=== PATIENT | female | born 2000 | race Hispanic/Latino ===

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

== ENCOUNTER 2018-12-18 14:05 | Outpatient (CLI) | payer OTHER ==
--- NOTE | 2018-12-18 15:11 | ULT ---
EXAM: OB ultrasound COMPARISON: None HISTORY: female. Evaluate size, dates, and anatomy. TECHNIQUE: Multiplanar grayscale and color Doppler transabdominal sonographic images are obtained. FINDINGS: There is a single intrauterine gestation in breech presentation. Cardiac Doppler demonstrat es heart tones with a heart rate of 137 beats per minute. The placenta is located posterior and fundal. Lower uterine segment is not well evaluated on this exam. However, the ultrasou nd technologist does report no evidence of placenta previa. The amniotic fluid index is diminished at 6.6 cm. The cervical length based on transabdominal imaging measures 4.5 centimeters. biometry measurements: BPD 9.39 cm -- 38 weeks 2 days HC 35.53 cm -- 41 weeks 4 days AC 34.54 cm -- 38 weeks 3 days FL 7.64 cm -- 39 weeks The estimated gestational age by ultrasound is 39 weeks 2 days with an ESPERANZA on12/23/2018. Gestational a ge by the last menstrual period is 39 weeks 6 days. The estimated weight by ultrasound is 3632 g (8 pounds). This represents 53 percentile for feta l weight. A 4 chambered heart is visualized. The cerebellum is not visualized due to gestational age of the fet us and head ossification resulting in shadowing. The visualized portions of the spine, kidneys, urinary bladder, and cord insertion demonstrate a normal sonographic appearance. Three-vessel cord is visualized. There is limited evaluation due to advanced gestational age, no defi nite anomalies are visualized. IMPRESSION: 1. Single intrauterine gestation in breech presentation with heart tones documented. Estimated gestational age by ultrasound is 39 weeks 2 days with ESPERANZA on 12/23/2018. 2. Estimated weight is 3632 g (8 pounds). 3. Amniotic fluid index is 6.6 centimeters which is diminished. 4. Limited evaluation of the lower uterine segment.
== END 2018-12-18 14:06 | disposition home or self-care (01) ==
LOC: SCSULT 14:05
PROVIDERS: ATTEND Student in an Organized Health Care Education/Training Program
DX: Z34.80 Encounter for supervision of other normal pregnancy, unspecified trimester (principal); Z3A.39 39 weeks gestation of pregnancy
CPT/HCPCS: 76805

== ENCOUNTER 2018-12-18 16:30 | Inpatient (IN) | payer OTHER ==
[~2018-12-18 16:30] MED LIST: Ondansetron PF 4 MG/2 ML Vial ONE
[2018-12-18 17:14] VITALS: BMI 35.9
[2018-12-18] MEDS ORDERED: hydrALAZINE 20 MG/ML VIAL SLOW IVP PRN ×2 (18:27→19:51)
--- NOTE | 2018-12-18 18:47 | PDOC.FPROB ---
FMR OB H&P: HPI - History of Present Illness Chief Complaint: Elevated blood pressure Indentification: 18yo F History of Present Illness: @ 39.6 wk by LMP and 10.6wk sono presents to L&D for evaluation after elevated BP at [facility]. Pt has had poor care with only 3 previous visits during this . Pt stated that she was unaware that she had medicaid coverage during this time. Today at her visit pt had BP of 144/82 and 122/82 in clinic. Sent for US which showed OBIE of 6.6, breech presentation, EFW of 3632, and hadlock of 53%. Dr. Florez at [facility] then called pt and sent her here for further evaluation of her elevated blood pressures. Pt denies any vaginal bleeding, discharge, loss of fluid. Notes intermittent contractions that are mildly painful and spaced far enough apart that she has been unable to time them. Denies any vision changes, increased swelling, headache, or neuro sx. Pt denies knowledge of any complications or infections with this . Primary Care Physician: Dr. Carol Florez - [facility] FMR OB H&P: Current - Care : 2 Para: 1 Gestational age: 39.6 Due date: 12/19/2018 Dating Criteria: LMP/10.6wk sono - OB Labs Blood type: O RH: negative Antibody Screen: unknown HIV: unknown RPR: unknown HepBsAg: unknown Quad screen: unknown Urine drug screen: not done Gonorrhea: unknown Chlamydia: unknown GBS: unknown - First Trimester Ultrasound First trimester: Initial US: 10.6wk US consistent w/ LMP. 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 No pap done w/ this . - Surgical History Sx History: None - Social History Social History: Denies any tobacco, alcohol, or drug use - Family History Family History: Denies any significant FHx FMR OB H&P: Medications - Current Home Medications: Medication Instructions Recorded Confirmed Type No Known 12/18/18 12/18/18 History Allergies/Adverse Reactions: Allergies Allergy/AdvReac Type Severity Reaction Status Date / Time No Known Allergies Allergy Verified 10/30/17 23:41 FMR OB H&P: ROS - Review of Systems General: denies: fever/chills, weight/appetite/sleep changes Eyes: denies: vision changes, double vision ENT: denies: nasal congestion, rhinorrhea Cardiovascular: denies: chest pain, edema Respiratory: denies: cough, shortness of breath Gastrointestinal: denies: abdominal pain, cramping, nausea, vomiting, diarrhea Genitourinary (Female): reports: contractions. denies: vaginal discharge, vaginal pain, vaginal bleeding Musculoskeletal: denies: tenderness, swelling Neurologic: denies: seizures, weakness, headache Integumentary: denies: itching, rash FMR OB H&P: Vital Signs - Maternal Vital signs: BP: 126/78 HR: 83 - Heart Tones Baseline: 170 Variability: moderate Acceleration: absent Deceleration: variable Category: category 2 Rayne contractions every: No definitive toco contractions visualized FMR OB H&P: Physical Exam - Physical Exam General: NAD, awake, alert and oriented HEENT: normocephalic and atraumatic, EOMI, MMM, grossly normal vision, grossly normal hearing Neck: supple, FROM Heart: RRR, normal S1/S2, no murmurs/rubs/gallops General: CTAB, no respiratory distress, good air movement Abdomen: soft, gravid, bowel sound present Musculoskeletal: normal gait and station, pulses present, FROM in all four extremities Neurological: cranial nerves II through XII intact, no focal deficit Skin: no rash, capillary refill <2 seconds Lymphatic: no unusual bruising or bleeding, no purpura FMR OB H&P: A/P - Problem List (1) History of inadequate care Current Visit: Yes Status: Acute Code(s): O09.30 - SUPRVSN OF PREG W INSUFFICIENT ANTENAT CARE, UNSP TRIMESTER Assessment and Plan: Order routine labs - HIV, RPR, Type Screen. UDS (2) Breech presentation of fetus Current Visit: Yes Status: Acute Code(s): O32.1XX0 - MATERNAL CARE FOR BREECH PRESENTATION, UNSP Assessment and Plan: Strip has progressed to Cat 2 with tachycardia and variable decels. Will plan for urgent . (3) Elevated blood pressure reading Current Visit: Yes Status: Acute Code(s): R03.0 - ELEVATED BLOOD-PRESSURE READING, W/O DIAGNOSIS OF HTN Assessment and Plan: Normal pressures since admission. Pre-e workup not deemed necessary at this time. (4) Third trimester Current Visit: Yes Status: Acute Code(s): Z34.93 - ENCNTR FOR SUPRVSN OF NORMAL PREG, UNSP, THIRD TRIMESTER Discussion: Date/Time: 12/18/18 611 This H&P was discussed with Dr. Roberts and Dr. Connor who agree with the above documentation and plan. Signature: Dallas Maldonado D.O. PGY1 Addendum - Attending - Attending Attestation Date/Time: 12/19/18 1287 I personally evaluated the patient and discussed the management with Dr. Maldonado at time of admission. I agree with the History, Examination, Assessment and Plan documented above with any addition or exceptions noted below. Please note that a second elevated BP was recorded and a preE workup was completed and the diagnosis of preeclampsia confirmed.
--- NOTE | 2018-12-18 19:05 | ULT ---
LIMITED OBSTETRICAL ULTRASOUND FOR BIOPHYSICAL PROFILE INDICATION: Low OBIE with limited care TECHNIQUE: Grayscale, M-mode Doppler, color Doppler and spectral Doppler images were obtained. Biophy sical profile was submitted by the hydro plant technician. Imaging is focused on the clinical indication. COMPARISON: Prior exam dated December 18, 2018 at 2:21 PM GESTATION: Number of gestations: Single. Presentation: Breech. heart rate: 152 bpm. Placental location: Right and fundal Previa: No evidence for previa. Cervical length: Not seen OBIE: 8.5 cm. Biophysical profile: tone: 2 out of 2. breathin out of 2 movements: 2 out of 2 Amniotic fluid level: 2 out of 2 IMPRESSION: 1. Biophysical profile of 8 out of 8. 2. OBIE of 8.5 cm is slightly above the 5th percentile for gestational age.
[2018-12-18] MEDS ORDERED: Promethazine HCl 25 MG/ML VIAL IM PRN ×2 (19:51→22:13)
[2018-12-18] MEDS ORDERED: Ondansetron PF 4 MG/2 ML Vial IVP PRN ×2 (19:51→22:13)
[2018-12-18] MEDS ORDERED: CEFAZOLIN 2 GM in Premix Bag 1 BAG IVPB SCH (20:00)
[2018-12-18] MEDS ORDERED: Bicitra 30 ML UDCUP PO SCH (20:00)
[2018-12-18] MEDS ORDERED: Lactated Ringer's 1,000 ML IV SCH (20:00)
[2018-12-18 20:20] LABS: Hemoglobin 9.9 g/dL (12.0-16.0); Mean Corpuscular HGB CONC 32.9 g/dL (32.0-36.0); Mean Corpuscular Hemoglobin 22.2 pg (25.0-35.0); Mean Corpuscular Volume 67.5 fL (78.0-98.0); Mean Platelet Volume 11.3 fL (7.4-10.4); Platelet Count 222 thou/uL (130-400); RBC Distribution Width 15.9 % (11.5-14.5); Red Blood Cell (RBC) Count 4.45 mill/uL (4.00-5.20); White Blood Cell (WBC) Count 10.2 thou/uL (4.8-10.8)
--- NOTE | 2018-12-18 20:32 | PDOC.EVN ---
Event Note - Event Note Event Note: @ 39w6d by nunu lozano who presented at [facility] and had one mild range BP. She was subsequently sent for an anatomy scan and was found to have a breech fetus. She has had an additional mild range pressure since being monitored. PMH/PSH - negative Meds: none NKDA SH: denies EDGARD FH: noncontributory ROS negative for preE symptoms FHTs cat 2 with tachycardia(BL 165), mod variability, and intermittent variable- appearing decelerations Rare ctx SVE deferred Labs pending A/P: @ 39w6d with ghtn vs chtn insufficient PNC (one visit ~10w, then one today) breech presentation anemia cat 2 FHTs 1. Pre E w/u and 3t labs 2. Will proceed with PLTCS in light of above. I discussed r/b/a/i of version, which is very unfavorable in setting of low fluid, >39w fetus, and cat 2 FHTs and she elects for CD. I discussed risks of pain, bleeding, infection, damage to bowel/bladder/other internal organs, need for transfusion, prolonged hospitalization, repeat operation and she voices understanding and desires to proceed. 3. Anesthesia notified. Kemar Roberts MD
[2018-12-18 20:38] LABS: Hypochromia SLIGHT = 6-15 cells (100X) (0-5/hpf); Lymphocytes 16 % (28-48); MDiff Complete? YES; Monocytes 1 % (0-4); Neutrophil 83 % (31-61); Platelet Morphology Comment Appears Adequate
[2018-12-18] MEDS ORDERED: PHENYLEPHRINE-NS 100 MCG/ML 10 ML SYRINGE ONE (20:39)
[2018-12-18] MEDS ORDERED: Oxytocin 10 UNITS/ML VIAL ONE ×2 (20:39→22:02)
[2018-12-18] MEDS ORDERED: MORPHINE 5 MG/10 ML PF VIAL ONE (20:39)
[2018-12-18 20:41] LABS: ALT (SGPT) Less than 7 U/L (8-55); AST (SGOT) 11 U/L (5-34); Albumin 3.6 g/dL (3.5-5.0); Alkaline Phosphatase 230 U/L (40-100); Anion Gap 15 mmol/L (10-20); BUN (Urea Nitrogen) 5 mg/dL (7.0-18.7); Bilirubin, Total 0.4 mg/dL (0.2-1.2); Calc. Creatinine Clearance 189 mL/min (70-130); Calcium 8.7 mg/dL (7.8-10.44); Carbon Dioxide 21 mmol/L (22-29); Chloride 105 mmol/L (98-107); Estimated GFR-MDRD Greater than 90; Globulin 3.6 g/dL (2.4-3.5); Glucose 72 mg/dL (70-105); Potassium 3.7 mmol/L (3.5-5.1); Protein, Total 7.2 g/dL (6.0-8.3); Sodium 137 mmol/L (136-145)
[2018-12-18] MEDS ORDERED: Ondansetron PF 4 MG/2 ML Vial ONE (20:47)
[2018-12-18 21:00] LABS: Syphilis Antibody Nonreactive (Nonreactive); Syphilis Antibody Index 0.04 S/CO (<1.00 Non-Reactive)
[2018-12-18] MEDS ORDERED: ePHEDrine/0.9% NaCl/PF SYRINGE 50 mg/10 ml ONE (21:02)
[2018-12-18] MEDS ORDERED: Methylergonovine 0.2 MG/ML VIAL ONE (21:35)
[2018-12-18] MEDS ORDERED: Fentanyl 100 MCG/2 ML VIAL ONE (21:40)
[2018-12-18 21:57] LABS: Actual Bicarbonate (HCO3a) 22.7 mEq/L (22-28)
[2018-12-18 21:59] LABS: Actual Bicarbonate (HCO3v) 22 mEq/L (22-28)
[2018-12-18 22:13] LABS: HBSAg Index 0.19 S/CO (0-0.99); HIV (1/2) Antibody/Antigen Non-Reactive (NonReactive); HIV 1/2 INDEX 0.05 S/CO (<1.00); Hep B Surf Ag Non-Reactive S/CO (NonReactive)
[2018-12-18] MEDS ORDERED: Naloxone HCl 0.4 mg/ml Vial IVP PRN ×2 (22:13)
[2018-12-18] MEDS ORDERED: HYDROmorphone 2 MG/ML VIAL SLOW IVP PRN (22:13)
[2018-12-18] MEDS ORDERED: Meperidine HCl/PF 25 MG/ML VIAL SLOW IVP PRN (22:13)
[2018-12-18] MEDS ORDERED: L&D-Morphine 4 MG/ML VIAL SLOW IVP PRN (22:13)
[2018-12-18] MEDS ORDERED: diphenhydrAMINE 50 MG/ML VIAL IVP PRN (22:13)
[2018-12-18] MEDS ORDERED: Ondansetron HCl/PF 4 MG/2 ML Vial IVP PRN (22:13)
[2018-12-18] MEDS ORDERED: Naloxone HCl 0.4 mg/ml Vial IV PRN (22:13)
[2018-12-18] MEDS ORDERED: Promethazine HCl 25 MG SUPP PR PRN (22:13)
[2018-12-18] MEDS ORDERED: Communication Order-Pharmacy FS SCH (22:15)
[2018-12-18] MEDS ORDERED: Ketorolac Tromethamine 30 MG/ML VIAL IVP SCH (22:15)
[2018-12-19 00:05] LABS: Creatinine, Urine 138.7 mg/dL (47-110)
[2018-12-19] MEDS ORDERED: Lanolin Ointment 7 GM TUBE TOP PRN (00:52)
[2018-12-19] MEDS ORDERED: hydrALAZINE 20 MG/ML VIAL SLOW IVP PRN (00:52)
[2018-12-19] MEDS ORDERED: HYDROcodone/Acetaminophen 5/325 mg Tablet PO PRN (00:52)
[2018-12-19] MEDS ORDERED: NS / Oxytocin 40 units/1000ml 1,000 ML IV SCH (00:52)
[2018-12-19] MEDS ORDERED: diphenhydrAMINE 25 MG CAP PO PRN (00:52)
[2018-12-19] MEDS ORDERED: Sodium Chloride 0.9% 10 ML ONE ×2 (01:27→06:35)
[2018-12-19] MEDS: Ketorolac Tromethamine 30 MG/ML VIAL IVP PRN ×3 (01:29→13:51)
[2018-12-19 06:16] LABS: Hemoglobin 8.4 g/dL (12.0-16.0); Mean Corpuscular HGB CONC 32.9 g/dL (32.0-36.0); Mean Corpuscular Hemoglobin 22.4 pg (25.0-35.0); Platelet Count 169 thou/uL (130-400); RBC Distribution Width 15.7 % (11.5-14.5); Red Blood Cell (RBC) Count 3.78 mill/uL (4.00-5.20); White Blood Cell (WBC) Count 11.1 thou/uL (4.8-10.8)
[2018-12-19] MEDS ORDERED: Adacel (T-DAP) 0.5 ML SYRINGE IM ONE (09:00)
[2018-12-19] MEDS: Ferrous Sulfate 325 MG TAB PO SCH ×2 (10:19→17:00)
[2018-12-19] MEDS: Docusate Calcium (SURFAK) 240 MG CAP PO SCH ×2 (10:19→21:13)
[2018-12-19] MEDS: HYDROcodone/Acetaminophen 5/325 mg Tablet PO PRN ×2 (10:20→13:50)
[2018-12-19] MEDS: Prenatal Vitamin 1 TAB PO SCH (10:24)
--- NOTE | 2018-12-19 12:37 | PDOC.PP ---
Post Progress Note Post Day #: 1 Subjective: Patient doing well. No significant overnight events. Patient states pain well controlled with current medications. Lochia is a little heavier than a period. Denies chest pain, shortness of breath, calf pain. PO intake tolerated: no Flatus: yes Ambulation: no Vital Signs (12 hours) Temp Pulse Resp BP Pulse Ox 12/19/18 11:23 98.4 F 89 20 104/56 L 12/19/18 08:03 98.3 F 70 20 114/62 98 12/19/18 07:47 70 114/62 12/19/18 02:20 98.5 F 89 18 118/65 12/19/18 01:05 98.1 F 77 18 131/80 100 Weight Weight 92.079 kg - Physical Examination General: NAD Cardiovascular: RRR Respiratory: non-labored breathing Abdominal: + bowel sounds, lochia (a little more than a period), no distention, appropriately TTP Fundus firm & at: 1 cm above umbilicus Extremities: negative homans (B) Skin: CS incision dry & intact, no rash Neurological: no gross focal deficits Psychiatric: A&Ox3, normal affect Result Diagrams: 12/19/18 05:57 12/18/18 20:08 Additional Labs: Post Labs Blood Type O POSITIVE 12/18/18 20:08 Hep Bs Antigen Non-Reactive S/CO (NonReactive) 12/18/18 20:08 (1) Term delivered Code(s): O80 - ENCOUNTER FOR FULL-TERM UNCOMPLICATED DELIVERY Status: Acute (2) Pre-eclampsia Code(s): O14.90 - UNSPECIFIED PRE-ECLAMPSIA, UNSPECIFIED TRIMESTER Status: Acute (3) Breech presentation of fetus Code(s): O32.1XX0 - MATERNAL CARE FOR BREECH PRESENTATION, UNSP Status: Acute (4) History of inadequate care Code(s): O09.30 - SUPRVSN OF PREG W INSUFFICIENT ANTENAT CARE, UNSP TRIMESTER Status: Acute (5) S/P primary low transverse Code(s): Z98.891 - HISTORY OF UTERINE SCAR FROM PREVIOUS SURGERY Status: Acute - Assessment/Plan 18 year old --> P2002 at 39.6 wks by LMP/10.6 wk sono TIUP, delivered - POD #1 s/p pLTCS - QBL 1060 mL, required methergine x1 (BP's not elevated at time of administration) - H/H 9.9/30 --> 8.4/25.7 - cEBL 884 mL - GBS unknown, pLTCS so no ppx needed - Routine post-op care - Encourage ambulation - D/C bear Pre-E - One elevated BP in clinic yesterday, so patient sent to L&D for triage. On arrival BP in 150's. - CMP and CBC WNL - Urine protein/creatinine 1.8 - BP's have been <140/90 - Continue to monitor BP Incomplete care - FDS and MDS pending for infant - No UDS obtained on admission s/p pLTCS - Breech presentation for advanced gestational age and low OBIE not safe for version - Continue routine PP care Breech presentation - s/p pLTCS - will need bilateral hip ultrasound at 6 weeks Dispo: Anticipate d/c within next 24-48 hours. Addendum - Attending - Attending Attestation Date/Time: 12/19/18 2082 I personally evaluated the patient and discussed the management with Dr. Ovalles. I agree with the History, Examination, Assessment and Plan documented above with any addition or exceptions noted below.
[2018-12-19] MEDS: Simethicone Chewable 80 MG TAB PO PRN (21:13)
[2018-12-19] MEDS: Ibuprofen 800 MG TAB PO SCH (21:13)
[2018-12-20] MEDS: Simethicone Chewable 80 MG TAB PO PRN (04:33)
[2018-12-20] MEDS: Ibuprofen 800 MG TAB PO SCH ×3 (05:55→21:00)
[2018-12-20] MEDS: Docusate Calcium (SURFAK) 240 MG CAP PO SCH ×2 (09:00→21:00)
[2018-12-20] MEDS: Ferrous Sulfate 325 MG TAB PO SCH ×2 (09:00→17:44)
[2018-12-20] MEDS: Prenatal Vitamin 1 TAB PO SCH (09:01)
--- NOTE | 2018-12-20 14:07 | PDOC.PP ---
Post Progress Note Post Day #: 2 Subjective: Patient doing well. No significant overnight events. Patient states she is passing gas, tolerating PO, and ambulating frequently without any difficulties. She is ready to go home. She denies chest pain, shortness of breath, N/V/D, or abdominal pain. PO intake tolerated: yes Flatus: yes Ambulation: yes Vital Signs (12 hours) Temp Pulse Resp BP Pulse Ox 12/20/18 08:00 99.0 F 85 20 115/66 98 12/20/18 04:26 98.7 F 76 18 110/66 Weight Weight 92.079 kg - Physical Examination General: NAD Cardiovascular: RRR Deviation from normal: 2/6 systolic murmur Respiratory: clear to auscultation bilaterally, non-labored breathing Abdominal: + bowel sounds, lochia (less than period), no distention, appropriately TTP Fundus firm & at: at umbilicus Extremities: negative homans (B) Skin: CS incision dry & intact, no rash Neurological: no gross focal deficits Psychiatric: A&Ox3, normal affect Result Diagrams: 12/19/18 05:57 12/18/18 20:08 Additional Labs: Post Labs Blood Type O POSITIVE 12/18/18 20:08 Hep Bs Antigen Non-Reactive S/CO (NonReactive) 12/18/18 20:08 Rubella IgG Antibody 3.32 index (Immune >0.99) 12/18/18 20:08 (1) Term delivered Code(s): O80 - ENCOUNTER FOR FULL-TERM UNCOMPLICATED DELIVERY Status: Acute (2) Pre-eclampsia Code(s): O14.90 - UNSPECIFIED PRE-ECLAMPSIA, UNSPECIFIED TRIMESTER Status: Acute (3) Breech presentation of fetus Code(s): O32.1XX0 - MATERNAL CARE FOR BREECH PRESENTATION, UNSP Status: Acute (4) History of inadequate care Code(s): O09.30 - SUPRVSN OF PREG W INSUFFICIENT ANTENAT CARE, UNSP TRIMESTER Status: Acute (5) S/P primary low transverse Code(s): Z98.891 - HISTORY OF UTERINE SCAR FROM PREVIOUS SURGERY Status: Acute - Assessment/Plan 18 year old --> P2002 at 39.6 wks by LMP/10.6 wk sono TIUP, delivered - POD #2 s/p pLTCS - QBL 1060 mL, required methergine x1 (BP's not elevated at time of administration) - H/H 9.9/30 --> 8.4/25.7 - cEBL 884 mL - GBS unknown, pLTCS so no ppx needed; called [facility] for results, but will not be available until Saturday. - Rubella immune, Rh + - Routine post-op care Pre-E - One elevated BP in clinic on day of admission, so patient sent to L&D for triage. On arrival BP in 150's. - CMP and CBC WNL - Urine protein/creatinine 1.8; collected after epidural - BP's have been <140/90 - Continue to monitor BP PP - Patient will need follow up at PNC in 1 week Incomplete care - MDS pending for infant - No UDS obtained on admission - FDS positive for methamphetamines; called lab regarding potential false positives which include phenylephedrine which may have been given during C/S. Will review records. FDS sent for confirmatory testing. - Reason for no PNC was d/t problems/concerns with insurance s/p pLTCS - Breech presentation for advanced gestational age and low OBIE not safe for version - Continue routine PP care - will need bilateral hip ultrasound 6 weeks from Breech presentation - s/p pLTCS - will need bilateral hip ultrasound at 6 weeks Dispo: D/C home at 20:00 tonight. Addendum - Attending - Attending Attestation Date/Time: 12/20/18 8656 I personally evaluated the patient and discussed the management with Dr. Ovalles I agree with the History, Examination, Assessment and Plan documented above with any addition or exceptions noted below. 18 yo now female s/p uncomplicated PLTCS for breech presentation on 12/18/18 at 2130 HD# 2 POD#2 Patient reports pain is controlled. No complications. No acute events overnight. Formula feeding. Lochia mild. +Flatus. VS reviewed. Labs reviewed. NAD RRR, II/ systolic flow murmur CTAB, no w/c Fundus firm below umbilicus, nontender Incision healing well. No e/d/p 1. s/p PLTCS for breech presentation: Unable to perform ECV. Uncomplicated. Meeting milestones. Ok to d/c later today if still doing well. Needs follow up wound check in 1 wk. 2. preeclampsia without severe features: Mild range BP and proteinuria. Remains asymptomatic. No need for mag ppx. BP WNL in pp period. ER precautions discussed. Will need BP check in 1 wk. 3. Incomplete PNC: Patient was seen for IOB visit, dating sono, and 39 wk visit on day of admission only. CM following. Has support. Denies drug use. No screening performed on mother due to uncollected urine. Likely false positive screen on infant due to medications received during spinal and BP assist during surgery. Confirmation testing pending. 4. Iron def anemia: Continue supplemental iron. 5. mild PPH?: QBL 1060 but calBL was only 887 mL based on Hct. Patient completely asymptomatic. 6. GBS pending. 7. Contraception: Patient unsure. Follow up with PCP. Ok to d/c later today if remains well. Jeff
[2018-12-21] MEDS: Ibuprofen 800 MG TAB PO SCH (05:31)
[2018-12-21 08:28] VITALS: BP 125/74; TEMP 98.4
[2018-12-21] MEDS: Docusate Calcium (SURFAK) 240 MG CAP PO SCH (08:50)
[2018-12-21] MEDS: Prenatal Vitamin 1 TAB PO SCH (08:50)
[2018-12-21] MEDS: Ferrous Sulfate 325 MG TAB PO SCH (08:50)
--- NOTE | 2018-12-21 09:54 | PDOC.PP ---
Post Progress Note Post Day #: 3 Subjective: Patient doing well. No significant overnight events. Patient opted to stay last night. Pain is well controlled. Meeting all PP milestones. No concerns. PO intake tolerated: yes Flatus: yes Ambulation: yes Vital Signs (12 hours) Temp Pulse Resp BP Pulse Ox 12/21/18 08:15 98.4 F 74 18 125/74 100 12/21/18 04:00 97.7 F 69 18 119/75 98 12/21/18 00:00 98.4 F 76 18 114/61 99 Weight Weight 92.079 kg - Physical Examination General: NAD Cardiovascular: RRR Respiratory: clear to auscultation bilaterally, non-labored breathing Abdominal: + bowel sounds, lochia (minimal), no distention, appropriately TTP Fundus firm & at: below umbilicus Extremities: negative homans (B) Skin: CS incision dry & intact, no rash Neurological: no gross focal deficits Psychiatric: A&Ox3, normal affect Result Diagrams: 12/19/18 05:57 12/18/18 20:08 Additional Labs: Post Labs Blood Type O POSITIVE 12/18/18 20:08 Hep Bs Antigen Non-Reactive S/CO (NonReactive) 12/18/18 20:08 Rubella IgG Antibody 3.32 index (Immune >0.99) 12/18/18 20:08 (1) Term delivered Code(s): O80 - ENCOUNTER FOR FULL-TERM UNCOMPLICATED DELIVERY Status: Acute (2) Pre-eclampsia Code(s): O14.90 - UNSPECIFIED PRE-ECLAMPSIA, UNSPECIFIED TRIMESTER Status: Acute (3) Breech presentation of fetus Code(s): O32.1XX0 - MATERNAL CARE FOR BREECH PRESENTATION, UNSP Status: Acute (4) History of inadequate care Code(s): O09.30 - SUPRVSN OF PREG W INSUFFICIENT ANTENAT CARE, UNSP TRIMESTER Status: Acute (5) S/P primary low transverse Code(s): Z98.891 - HISTORY OF UTERINE SCAR FROM PREVIOUS SURGERY Status: Acute - Assessment/Plan 18 year old --> P2002 at 39.6 wks by LMP/10.6 wk sono TIUP, delivered - POD #3 s/p pLTCS - QBL 1060 mL, required methergine x1 (BP's not elevated at time of administration) - H/H 9.9/30 --> 8.4/25.7 - cEBL 884 mL - GBS unknown, pLTCS so no ppx needed; called [facility] for results, but will not be available until Saturday. - Rubella immune, Rh + - Routine post-op care Pre-E - One elevated BP in clinic on day of admission, so patient sent to L&D for triage. On arrival BP in 150's. - CMP and CBC WNL - Urine protein/creatinine 1.8; collected after epidural - BP's have been <140/90 - Continue to monitor BP PP - Patient will need follow up at PNC in 1 week Incomplete care - MDS pending for infant - No UDS obtained on admission - FDS positive for methamphetamines; called lab regarding potential false positives which include phenylephedrine which may have been given during C/S. Will review records. FDS sent for confirmatory testing. - Reason for no PNC was d/t problems/concerns with insurance s/p pLTCS - Breech presentation for advanced gestational age and low OBIE not safe for version - Continue routine PP care - will need bilateral hip ultrasound 6 weeks from Breech presentation - s/p pLTCS - Infant will need bilateral hip ultrasound at 6 weeks Dispo: D/C home today. Addendum - Attending - Attending Attestation Date/Time: 12/21/18 1058 I personally evaluated the patient and discussed the management with Dr. Ovalles I agree with the History, Examination, Assessment and Plan documented above with any addition or exceptions noted below. 18 yo now female s/p uncomplicated PLTCS for breech presentation on 12/18/18 at 2130 HD# 3 POD#3 Doing well. Stayed overnight due to help with pain control. No longer having pain this AM. Ambulating well. +Flatus. VS reviewed. NAD RRR, I/ systolic flow murmur CTAB, no w/c Fundus firm below umbilicus, nontender Incision healing well. No e/d/p 1. s/p PLTCS for breech presentation: Unable to perform ECV. Uncomplicated. Meeting milestones. Ok to d/c today. Needs follow up wound check in 1 wk. 2. preeclampsia without severe features: Mild range BP and proteinuria. Remains asymptomatic. No need for mag ppx. BP WNL in pp period. ER precautions discussed. Will need BP check in 1 wk. 3. Incomplete PNC: Follow up closely outpatient to make sure patient has good support. 4. Iron def anemia: Continue supplemental iron. 5. mild PPH?: QBL 1060 but calBL was only 887 mL based on Hct. Patient completely asymptomatic. 6. GBS pending. Results to be available on Saturday. 7. Contraception: Patient unsure. Follow up with PCP. Ok to d/c to home. Follow up with PNC later this week for BP and wound check. Jeff
--- NOTE | 2018-12-22 03:56 | OP ---
DATE OF PROCEDURE: 12/18/2018 RESIDENT SURGEON: Marianela Ovalles DO PROCEDURE PERFORMED: Primary low-transverse section. PREOPERATIVE DIAGNOSES: 1. Term intrauterine . 2. Breech presentation. 3. Newly diagnosed preeclampsia. 4. Incomplete care. POSTOPERATIVE DIAGNOSES: 1. Term intrauterine , delivered. 2. Breech presentation. ANESTHESIA: Spinal. INDICATIONS: This is a 18-year-old G2, P1-0-0-1 at 39 and 6 weeks gestation, who initially presented to Labor and Delivery with elevated blood pressures from the clinic. The patient also had an ultrasound at an outside hospital, which showed breech presentation and low normal OBIE. After discussion with the patient due to elevated blood pressures and breech presentation, a decision was made to proceed with a primary low-transverse section. DESCRIPTION OF PROCEDURE: After risks, benefits, and alternatives were explained to the patient, she gave informed consent. Preoperative antibiotics included cefazolin 2 g IV. The patient was taken to the operating room and spinal anesthesia was initiated. She was placed in the supine position with a left tilt and prepped and draped in the usual sterile fashion. A Pfannenstiel incision was made with the scalpel and carried down to the level of the fascia, which was sharply nicked. The fascial cut was extended bilaterally with Hill scissors. The inferior and superior edges of the cut fascial edges were elevated with Abigail clamps. The underlying rectus muscles were sharply and bluntly dissected free. The recti were divided digitally and retracted manually. Peritoneum was entered bluntly and retracted manually. Bladder blade was placed. A low transverse score was made with a scalpel and the uterus was entered in the midline with the scalpel. Clear fluid was seen. Hysterotomy was extended manually. The was noted to be breech and was delivered in the usual breech fashion. The mouth and nares were bulb suctioned. Cord was clamped and cut. The grossly normal female was handed to the awaiting nurse. Cord blood was obtained. Placenta was spontaneously removed and found to be intact with three-vessel cord and discarded. The uterus was externalized and the endometrium was curetted with a dry lap. The bladder blade was replaced and the uterus was closed with a running locking #1 Monocryl suture, followed by a running nonlocking #1 Monocryl imbricating suture. Following this, hemostasis was noted. The abdomen was irrigated with saline and suctioned free of clots. The uterus was internalized and hysterotomy was again noted to be hemostatic. The fascia was closed with a running nonlocking 0 PDS suture. The subcutaneous tissue was irrigated and bleeders were cauterized. The subcutaneous tissue was brought together using 2-0 plain gut. The skin was approximated with 4-0 Monocryl suture. Dermabond was placed on the incision. A pressure dressing was then placed. All counts were correct. The patient tolerated the procedure well, and was taken to the recovery room in stable condition. ESTIMATED BLOOD LOSS: Quantitative blood loss was 1060 mL. COMPLICATIONS: None. SPECIMENS: Cord blood sent to lab for blood type. FINDINGS: Grossly normal female infant with Apgars of 8 and 9 at 1 and 5 minutes respectively. Grossly normal placenta with 3-vessel cord discarded. DRAINS: Hodge to gravity, draining clear urine. Job ID: [id number]
== END 2018-12-21 11:55 | disposition home or self-care (01) | DRG 788 ==
LOC: L&D/OP 16:30 → L&D 20:33 → 3SW 12-19 01:10
PROVIDERS: ADMIT Student in an Organized Health Care Education/Training Program; ATTEND Student in an Organized Health Care Education/Training Program
PROC: 10D00Z1 Extraction of Products of Conception, Low, Open Approach (ICD-10-PCS; principal; 2018-12-21)
DX: O32.1XX0 Maternal care for breech presentation, not applicable or unspecified (principal); O14.94 Unspecified pre-eclampsia, complicating childbirth; Z3A.39 39 weeks gestation of pregnancy; Z37.0 Single live birth; O99.02 Anemia complicating childbirth; D50.9 Iron deficiency anemia, unspecified
CPT/HCPCS: 36415; 51702; 76805; 76819; 80053; 82570; 82805; 84156; 85025; 85027; 86762; 86780; 86850; 86900; 86901; 87340; 87389; 88307; 99285; J0690; J1200; J1885; J2210; J2274; J2405; J2590; J3010

== ENCOUNTER 2019-12-30 20:01 | Emergency (ER) | payer OTHER, SELFPAY ==
[2019-12-30 20:37] LABS: Mean Corpuscular HGB CONC 33.3 g/dL (32.0-36.0); Mean Corpuscular Hemoglobin 24.9 pg (27.0-31.0); Mean Corpuscular Volume 74.9 fL (78.0-98.0); Mean Platelet Volume 9.3 fL (7.4-10.4); Platelet Count 229 thou/uL (130-400); RBC Distribution Width 15.3 % (11.5-14.5); White Blood Cell (WBC) Count 10.6 thou/uL (4.8-10.8)
[2019-12-30 20:52] LABS: ALT (SGPT) 12 U/L (8-55); AST (SGOT) 23 U/L (5-34); Albumin 4.2 g/dL (3.5-5.0); Alkaline Phosphatase 93 U/L (40-110); Anion Gap 14 mmol/L (10-20); BUN (Urea Nitrogen) 9 mg/dL (7.0-18.7); Bilirubin, Total 0.4 mg/dL (0.2-1.2); Calc. Creatinine Clearance 0 mL/min (70-130); Calcium 8.7 mg/dL (7.8-10.44); Carbon Dioxide 22 mmol/L (22-29); Chloride 100 mmol/L (98-107); Estimated GFR-MDRD Greater than 90; Globulin 4.1 g/dL (2.4-3.5); Glucose 109 mg/dL (70-105); Protein, Total 8.3 g/dL (6.0-8.3); Sodium 133 mmol/L (136-145)
[2019-12-30 20:54] LABS: Bilirubin Negative (Negative); Blood, Urine 3+ (Negative); Clarity Turbid (Clear); Glucose, Urine (Dipstick) Normal (Negative); Ketone, Urine Negative (Negative); Leukocyte 250 Leu/uL (Negative); Nitrite Negative (Negative); Protein, Urine (Dipstick) 50 mg/dL (Neg-Trace); RBC/HPF 21-50 HPF (0-3); Specific Gravity, Urine 1.023 (1.002-1.036); Urobilinogen Normal mg/dL (Less than 2); pH, Urine 6.5 (5.0-9.0)
[2019-12-30 20:55] LABS: Bacteria/HPF 2+ HPF (None Seen); Pregnancy Test - Urine (BHCG) Negative (Negative); Pregu Control Background? CLEAR/WHITE (CLR/WHITE); Pregu Control Bar Appear? YES (CONTROL BAR); Specific Gravity 1.023 (1.002-1.036)
[2019-12-30 20:56] LABS: Band 13 % (5-11); Lymphocytes 22 % (21-51); MDiff Complete? YES; Monocytes 9 % (0-10); Neutrophil 56 % (42-75)
[2019-12-30] MEDS ORDERED: Ondansetron PF 4 MG/2 ML Vial ONE (22:09)
[2019-12-30] MEDS ORDERED: Ketorolac Tromethamine 30 MG/ML VIAL ONE (22:09)
== END 2019-12-30 23:17 | disposition home or self-care (01) ==
LOC: ERS 20:01
DX: A08.4 Viral intestinal infection, unspecified (principal); R11.2 Nausea with vomiting, unspecified
CPT/HCPCS: 36415; 80053; 81003; 81015; 81025; 85025; 96372; 96374; 96375; J0500; J1885; J2405

== ENCOUNTER 2020-01-10 15:18 | Emergency (ER) | payer SELFPAY ==
[2020-01-10] MEDS ORDERED: Ibuprofen 200 MG TAB ONE (15:42)
[2020-01-10] MEDS ORDERED: Acetaminophen 500 MG TAB ONE (15:42)
[2020-01-10 15:52] LABS: Hemoglobin 12.7 g/dL (12.0-16.0); Mean Corpuscular Volume 75.9 fL (78.0-98.0); Mean Platelet Volume 8.6 fL (7.4-10.4); Platelet Count 295 thou/uL (130-400); Red Blood Cell (RBC) Count 5.07 mill/uL (4.20-5.40); White Blood Cell (WBC) Count 7.8 thou/uL (4.8-10.8)
[2020-01-10 15:54] LABS: Bilirubin Negative (Negative); Blood, Urine 2+ (Negative); Clarity Turbid (Clear); Glucose, Urine (Dipstick) Normal (Negative); Ketone, Urine Negative (Negative); Leukocyte 500 Leu/uL (Negative); Nitrite Negative (Negative); Protein, Urine (Dipstick) 30 mg/dL (Neg-Trace); RBC/HPF 21-50 HPF (0-3); Specific Gravity, Urine 1.022 (1.002-1.036); Transitional Epithelial 0-3 HPF (None Seen); Urobilinogen Normal mg/dL (Less than 2); WBC/HPF Greater than 50 HPF (0-3); pH, Urine 6.5 (5.0-9.0)
[2020-01-10 15:55] LABS: Bacteria/HPF 1+ HPF (None Seen); Pregnancy Test - Urine (BHCG) Negative (Negative); Pregu Control Background? CLEAR/WHITE (CLR/WHITE); Pregu Control Bar Appear? YES (CONTROL BAR); Specific Gravity 1.022 (1.002-1.036)
[2020-01-10 16:16] LABS: Band 15 % (5-11); Eosinophils 1 % (0-10); Lymphocytes 28 % (21-51); MDiff Complete? YES; Microcytosis SLIGHT = 6-15 cells (100X) (0-5/hpf); Monocytes 5 % (0-10); Neutrophil 50 % (42-75); Platelet Morphology Comment Appears Adequate; Polychromasia SLIGHT = 2-3 cells (100X) (0-2/hpf); Reactive Lymphocytes 1 % (0-10)
[2020-01-10 16:18] LABS: ALT (SGPT) 32 U/L (8-55); AST (SGOT) 29 U/L (5-34); Albumin 4.2 g/dL (3.5-5.0); Alkaline Phosphatase 121 U/L (40-110); Anion Gap 15 mmol/L (10-20); BUN (Urea Nitrogen) 10 mg/dL (7.0-18.7); Bilirubin, Total 0.3 mg/dL (0.2-1.2); Calc. Creatinine Clearance 0 mL/min (70-130); Calcium 8.7 mg/dL (7.8-10.44); Carbon Dioxide 21 mmol/L (22-29); Chloride 105 mmol/L (98-107); Estimated GFR-MDRD Greater than 90; Glucose 96 mg/dL (70-105); Potassium 4.3 mmol/L (3.5-5.1); Protein, Total 8.2 g/dL (6.0-8.3); Sodium 137 mmol/L (136-145)
== END 2020-01-10 16:12 | disposition home or self-care (01) ==
LOC: ERS 15:18
DX: N39.0 Urinary tract infection, site not specified (principal)
CPT/HCPCS: 80053; 81003; 81015; 81025; 85025; 99284

== ENCOUNTER 2021-03-04 07:18 | Emergency (ER) | payer SELFPAY ==
[2021-03-04 08:29] LABS: #Eosinphils 0.1 thou/uL (0.0-0.7); #Monocytes 0.4 thou/uL (0.11-0.59); #Neutrophils 5.2 thou/uL (1.40-6.50); %Basophils 0.1 % (0.0-1.0); %Eosinophils 1.7 % (0.0-10.0); %Lymphocytes 26.1 % (21.0-51.0); %Monocytes 4.8 % (0.0-10.0); %Neutrophils 67.2 % (42.0-75.0); Hemoglobin 13.7 g/dL (12.0-16.0); Mean Corpuscular HGB CONC 33.5 g/dL (32.0-36.0); Mean Corpuscular Hemoglobin 27.3 pg (27.0-31.0); Mean Corpuscular Volume 81.4 fL (78.0-98.0); Mean Platelet Volume 8.1 fL (7.4-10.4); Platelet Count 274 thou/uL (130-400); RBC Distribution Width 14.2 % (11.5-14.5); Red Blood Cell (RBC) Count 5.01 mill/uL (4.20-5.40); White Blood Cell (WBC) Count 7.7 thou/uL (4.8-10.8)
[2021-03-04 10:36] LABS: Bacteria/HPF 3+ HPF (None Seen); Bilirubin Negative (Negative); Blood, Urine 2+ (Negative); Glucose, Urine (Dipstick) Normal (Negative); Ketone, Urine 10 mg/dL (Negative); Leukocyte Negative Leu/uL (Negative); Nitrite 2+ (Negative); Protein, Urine (Dipstick) Negative (Neg-Trace); RBC/HPF Greater than 50 HPF (0-3); Specific Gravity, Urine 1.008 (1.002-1.036); Squamous Epithelial 0-3 HPF (0-3); Urobilinogen Normal mg/dL (Less than 2)
[2021-03-04 10:37] LABS: Clarity Hazy (Clear)
== END 2021-03-04 11:06 | disposition home or self-care (01) ==
LOC: ERS 07:18
DX: O20.9 Hemorrhage in early pregnancy, unspecified (principal); Z3A.01 Less than 8 weeks gestation of pregnancy
CPT/HCPCS: 36415; 76856; 81003; 81015; 84702; 85025; 86900; 86901

== ENCOUNTER 2022-05-25 09:21 | Emergency (ER) | payer MEDICAID, SELFPAY ==
[2022-05-25 10:53] LABS: #Eosinphils 0.1 thou/uL (0.0-0.7); #Lymphocytes 1.5 thou/uL (1.20-3.40); #Monocytes 0.3 thou/uL (0.11-0.59); #Neutrophils 7.8 thou/uL (1.40-6.50); %Basophils 0.1 % (0.0-1.0); %Eosinophils 0.8 % (0.0-10.0); %Lymphocytes 15.6 % (21.0-51.0); %Monocytes 2.9 % (0.0-10.0); %Neutrophils 80.7 % (42.0-75.0); Hemoglobin 14.2 g/dL (12.0-16.0); Mean Corpuscular HGB CONC 33.5 g/dL (32.0-36.0); Mean Corpuscular Hemoglobin 27.5 pg (27.0-31.0); Mean Corpuscular Volume 82.1 fl (78.0-98.0); Mean Platelet Volume 9.2 fL (7.4-10.4); Platelet Count 276 10x3/uL (130-400); RBC Distribution Width 13.7 % (11.5-14.5); Red Blood Cell (RBC) Count 5.16 mill/uL (4.20-5.40); White Blood Cell (WBC) Count 9.7 10x3/uL (4.8-10.8)
[2022-05-25 11:10] LABS: ALT (SGPT) 13 U/L (8-55); AST (SGOT) 16 U/L (5-34); Albumin 4.9 g/dL (3.5-5.0); Alkaline Phosphatase 98 U/L (40-110); Anion Gap 15 mmol/L (10-20); BUN (Urea Nitrogen) 10 mg/dL (7.0-18.7); Bilirubin, Total 0.7 mg/dL (0.2-1.2); Calc. Creatinine Clearance 0 mL/min (70-130); Calcium 9.5 mg/dL (7.8-10.44); Carbon Dioxide 25 mmol/L (22-29); Chloride 102 mmol/L (98-107); Estimated GFR 113; Glucose 85 mg/dL (70-105); Potassium 3.4 mmol/L (3.5-5.1); Protein, Total 8.9 g/dL (6.0-8.3); Sodium 139 mmol/L (136-145)
== END 2022-05-25 11:44 | disposition home or self-care (01) ==
LOC: ERS 09:21
DX: G51.0 Bell's palsy (principal)
CPT/HCPCS: 70450; 80053; 85025; 93005